=== PATIENT | male | born 1980 | race Caucasian/White ===

== ENCOUNTER 2024-05-10 21:02 | Observation (INO) | payer OTHER, SELFPAY ==
[2024-05-10 21:08] VITALS: BP 163/117; PULSE 78; TEMP 36.4; O2SAT 99; BMI 29.7
--- NOTE | 2024-05-10 21:18 | ED_ITS ---
HPI HPI - General Adult General Chief complaint: Abdominal Pain Stated complaint: rectal pain Time Seen by Provider: 05/10/24 21:14 Source: patient Mode of arrival: walk-in Limitations: no limitations History of Present Illness HPI narrative: presents complaining of lillie anal pain. Started about 5 days ago and has increased. Now hurts to sit on his buttocks. No fever or abdominal pain. Related Data Previous Rx's ?Medication ?Instructions ?Recorded levofloxacin 750 mg tablet 750 mg PO DAILY 7 days #10 tabs 05/11/24 metronidazole 500 mg tablet 500 mg PO Q8H 10 days #30 tabs 05/11/24 Allergies Allergy/AdvReac Type Severity Reaction Status Date / Time sulfamethoxazole Allergy Intermediate Rash Verified 05/10/24 21:08 [From Bactrim] trimethoprim [From Bactrim] Allergy Intermediate Rash Verified 05/10/24 21:08 Opioid HPI Opioid Management Most Recent Opioid Data: Last Pain Scale 8 05/11/24 11:00 Last Pain Assessment 05/11/24 11:00 Last MAR Pain Assessment 05/11/24 10:58 Last ORT Total Score 0 05/11/24 00:42 Last ORT Risk Category Low Risk 05/11/24 00:42 Review of Systems ROS Status of ROS 10 or more systems reviewed and unremark able except as noted in history and below PFSH PFS Social History Non-prescribed substance use: denies use Known occupational exposures/hazards: No Highest level of school completed/degree received: GED or equivalent Do you want help with school or training: No Are you now , , , , never or living with a partner: In a typical week, how many times do you talk on the telephone with family, friends, or neighbors: 3 or more times per week How often do you get together with friends or relatives: once per week How often do you attend worship or mormon services: never Do you belong to any clubs or organizations such as worship groups unions, fraternal or athletic groups, or school groups: no Total score: 2 Score interpretation: A score of greater than or equal to 2 indicates the lowest level of social isolation. Little interest or pleasure in doing things: not at all Feeling down, depressed, or hopeless: not at all Feel stressed/tense/nervous/anxious/difficulty sleeping: not at all Due to disability, difficulty making decisions: No Do you think of yourself as: straight/heterosexual Gender Identity: male Exam Constitutional Vital Signs, click to edit/add: Last Vital Signs Temp 97.6 F 05/11/24 09:12 Pulse 68 05/11/24 09:12 Resp 18 05/11/24 09:12 BP 129/81 05/11/24 09:12 Pulse Ox 94 L 05/11/24 09:12 O2 Del Method Room Air 05/11/24 09:12 Common normals: no apparent distress, average body habitus, oriented x3, no limitations, healthy appearing, alert and well nourished HENMT Common normals: normocephalic and head/scalp atraumatic Eye Common normals: PERRL and EOMs intact bilaterally Respiratory Common normals: normal respiratory effort, no retractions, no use of accessory muscles and clear to auscultation bilaterally Cardio Common normals: regular rate, regular rhythm, S1 normal heart sound and S2 normal heart sound GI Common normals: Normal to inspection, nondistended, normoactive bowel sounds present, soft to palpation and non-tender Other: right lillie anal ext hemorrhoid noted but is not enlarged . very tender. Tenderness out of proportion to inspection. Does not appear thrombosed Back & Pelvis Common normals: no CVA tenderness Extremity Common normals: normal to inspection and full ROM Neuro Common normals: oriented x3, CN's II-XII intact bilaterally, moves all extremities and no focal motor deficits Psych Appearance: grossly normal Course Vital Signs Vital signs: Vital Signs Temperature 97.5 F L 05/10/24 21:08 Pulse Rate 78 05/10/24 21:08 Respiratory Rate 18 05/10/24 21:08 Blood Pressure 163/117 H 05/10/24 21:08 Pulse Oximetry 99 05/10/24 21:08 Oxygen Delivery Method Room Air 05/10/24 21:08 Temperature 97.6 F 05/11/24 09:12 Pulse Rate 68 05/11/24 09:12 Respiratory Rate 18 05/11/24 09:12 Blood Pressure 129/81 05/11/24 09:12 Pulse Oximetry 94 L 05/11/24 09:12 Oxygen Delivery Method Room Air 05/11/24 09:12 Medical Decision Making [facility] Narrative Medical decision making narrative: patient presents complaining of rectal pain worsening over the past week. Found to have an intersphincteric abscess 2.2cm. Discussed with Dr Martinez who recommended hospitalization and he will consult in the AM. Hospitalist paged. Patient given dose of cipro and flagyl as well as fentanyl and solumedrol for the inflamation. Lab Data Labs: Lab Results 05/10/24 Range/Units 21:35 WBC 11.0 (4.0-11.0) 10^3/uL RBC 5.62 (4.70-6.10) 10^6/uL Hgb 14.7 (14.0-18.0) g/dL Hct 45.7 (42.0-54.0) % MCV 81.3 (80.0-94.0) fL MCH 26.2 (25.9-34.0) pg MCHC 32.2 (29.9-35.2) g/dL RDW 18.4 H (11.0-15.0) % Plt Count 272 (150-450) 10^3/uL MPV 9.6 (9.5-13.5) fL Neut % (Auto) 65.7 (43.0-75.0) % Lymph % (Auto) 21.2 (20.5-60.0) % [place] % (Auto) 11.6 (1.7-12.0) % Eos % (Auto) 0.6 L (0.9-7.0) % Baso % (Auto) 0.8 (0.2-2.0) % Neut # (Auto) 7.2 H (1.4-6.5) 10^3/uL Lymph # (Auto) 2.3 (1.2-3.8) 10^3/uL [place] # (Auto) 1.3 H (0.3-0.8) 10^3/uL Eos # (Auto) 0.1 (0.0-0.7) 10^3/uL Baso # (Auto) 0.1 (0.0-0.1) 10^3/uL Abs Immat Gran (auto) 0.01 (0.00-0.03) 10^3/uL Imm/Tot Granulo (auto) 0.1 (0.0-0.5) % Sodium 138 (136-145) mmol/L Potassium 4.2 (3.5-5.1) mmol/L Chloride 100 (98-107) mmol/L Carbon Dioxide 28.5 (21.0-32.0) mmol/L Anion Gap 13.7 BUN 17.0 (7.0-18.0) mg/dL Creatinine 1.23 (0.70-1.30) mg/dL Est GFR ( Amer) >60 (>=60) Est GFR (Non-Af Amer) >60 (>=60) BUN/Creatinine Ratio 13.8 Glucose 87 (74-106) mg/dL Lactate 0.8 (0.4-2.0) mmol/L Calcium 9.2 (8.5-10.1) mg/dL Total Bilirubin 0.5 (0.2-1.0) mg/dL AST 40 H (15-37) U/L ALT 58 (16-63) U/L Alkaline Phosphatase 54 (46-116) U/L Total Protein 7.1 (6.4-8.2) g/dL Albumin 3.5 (3.4-5.0) g/dL Globulin 3.6 g/dL Albumin/Globulin Ratio 1.0 Imaging Data Abdominal x-ray: Radiologist's impression: ITS Impressions Abdomen/Pelvis CT 05/10/24 21:22 IMPRESSION: 1. Right perianal intersphincteric abscess measuring up to 2.2 centimeters. 2. Nonobstructing right renal calculus measuring 3 millimeters. Electronically authenticated by: WANDER ARMENDARIZ Date: 05/10/2024 23:19 Discharge Plan Discharge Chief Complaint: Abdominal Pain Clinical Impression: Intersphincteric abscess Patient Disposition: Admitted as Observation Discharge Date/Time: 05/11/24 00:27
--- NOTE | 2024-05-10 21:22 | CT_ITS ---
[address] [address] Patient Name: TANA GILLIS MRN: [id number] date: 1980 Sex: M Assigned Patient Location: ER Current Patient Location: ER Accession/Order Number: [id number] Exam Date: 05/10/2024 22:18 Report Date: 05/10/2024 23:19 At the request of: STEVE NOGUERA Procedure: CT abdomen pelvis w con EXAM: CT abdomen pelvis w con HISTORY: anal pain COMPARISON: 04/19/2016 TECHNIQUE: CT of abdomen and pelvis with intravenous contrast. Dose reduction techniques were achieved by using automated exposure control and/or adjustment of mA and/or kV according to patient size and/or use of iterative reconstruction technique. FINDINGS: TUBES AND IMPLANTS: None. LOWER CHEST: Unremarkable ABDOMEN and PELVIS ABDOMINAL WALL AND SOFT TISSUES: There is induration involving the left perianal/perineal region adjacent to the gluteal cleft with small hypodense collection seen in the right intersphincteric region measuring 2.2 by 1.7 by 0.8 centimeters. BONES: Multilevel degenerative changes of the spine. No suspicious lesions. ARTERIES: No aortoiliac aneurysm VEINS: Unremarkable. LYMPH NODES: Unremarkable. PERITONEUM/ RETROPERITONEUM: Unremarkable. BOWEL: No obstruction. APPENDIX: Unremarkable LIVER: No suspicious lesions. GALLBLADDER: Unremarkable. BILE DUCTS: Not dilated SPLEEN: Unremarkable. PANCREAS: Unremarkable. ADRENALS: Unremarkable. KIDNEYS/ URETERS: Nonobstructing right renal calculus measuring 3 millimeters. No left stones or hydronephrosis. REPRODUCTIVE ORGANS: Unremarkable URINARY BLADDER: Unremarkable. CT/CT abdomen pelvis w con IMPRESSION: 1. Right perianal intersphincteric abscess measuring up to 2.2 centimeters. 2. Nonobstructing right renal calculus measuring 3 millimeters. Electronically authenticated by: WANDER ARMENDARIZ Date: 05/10/2024 23:19
[2024-05-10 21:40] LABS: Basophils Absolute Auto 0.1 10^3/uL (0.0-0.1); Basophils Percent Auto 0.8 % (0.2-2.0); Eosinophils Absolute Auto 0.1 10^3/uL (0.0-0.7); Eosinophils Percent Auto 0.6 % (0.9-7.0); Hematocrit 45.7 % (42.0-54.0); Hemoglobin 14.7 g/dL (14.0-18.0); Immature Granulocytes Abs Auto 0.01 10^3/uL (0.00-0.03); Immature Granulocytes Pct Auto 0.1 % (0.0-0.5); Lymphocytes Absolute Auto 2.3 10^3/uL (1.2-3.8); Lymphocytes Percent Auto 21.2 % (20.5-60.0); Mean Corpuscular HGB Conc 32.2 g/dL (29.9-35.2); Mean Corpuscular Hemoglobin 26.2 pg (25.9-34.0); Mean Corpuscular Volume 81.3 fL (80.0-94.0); Mean Platelet Volume 9.6 fL (9.5-13.5); Monocytes Absolute Auto 1.3 10^3/uL (0.3-0.8); Monocytes Percent Auto 11.6 % (1.7-12.0); Neutrophils Absolute Auto 7.2 10^3/uL (1.4-6.5); Neutrophils Percent Auto 65.7 % (43.0-75.0); Platelet Count 272 10^3/uL (150-450); Red Blood Count 5.62 10^6/uL (4.70-6.10); Red Cell Distribution Width 18.4 % (11.0-15.0)
[2024-05-10] MEDS: KETOROLAC TROMETHAMINE 30 MG/ML VIAL IVP (21:42)
[2024-05-10] MEDS: METHYLPREDNISOLONE SOD SUCC PF 125 MG/2 ML VIAL IVP (21:42)
[2024-05-10 21:56] LABS: Alanine Aminotransferase 58 U/L (16-63); Albumin Level 3.5 g/dL (3.4-5.0); Alkaline Phosphatase 54 U/L (46-116); Anion Gap 13.7; Aspartate Amino Transferase 40 U/L (15-37); BUN Creatinine Ratio 13.8; Bilirubin Total 0.5 mg/dL (0.2-1.0); Calcium 9.2 mg/dL (8.5-10.1); Carbon Dioxide 28.5 mmol/L (21.0-32.0); Chloride 100 mmol/L (98-107); Estimated GFR (African America >60 (>=60); Estimated GFR (Non-African Ame >60 (>=60); Globulin 3.6 g/dL; Glucose 87 mg/dL (74-106); Potassium 4.2 mmol/L (3.5-5.1); Sodium 138 mmol/L (136-145); Total Protein 7.1 g/dL (6.4-8.2)
[2024-05-10 21:59] LABS: Lactate/Lactic Acid 0.8 mmol/L (0.4-2.0)
[2024-05-10] MEDS: FENTANYL CITRATE/PF 100 MCG/2 ML VIAL IV (23:51)
[2024-05-10] MEDS: CIPROFLOXACIN IN 5 % DEXTROSE 400 MG/200 ML PREMIX 200 MG IV (23:51)
[2024-05-10 23:58] VITALS: BP 145/83; PULSE 78; O2SAT 96
[2024-05-11] VITALS (12 sets, daily range): BP systolic 96–174; BP diastolic 42–98; PULSE 66–77; TEMP 36.4–36.8; O2SAT 92–98; BMI 29.0
[2024-05-11] MEDS: DEXTROSE 5%-0.9% NACL 1,000 ML IV.SOLN 125 ML IV (01:55)
[2024-05-11] MEDS: METRONIDAZOLE/SODIUM CHLORIDE 500 MG/100 ML PREMIX 100 MG IV ×2 (02:00→09:05)
[2024-05-11] MEDS: FENTANYL CITRATE/PF 100 MCG/2 ML VIAL 50 MCG IV ×3 (02:03→09:05)
[2024-05-11] MEDS: TRAZODONE HCL 50 MG TABLET PO (02:04)
--- NOTE | 2024-05-11 06:36 | P.GSCN_ITS ---
History of Present Illness Consult details Consult date: 05/11/24 Reason for consult: other (Perianal abscess right buttocks) Requesting physician: Luis Felipe Manuel Narrative: 43-year-old male presented to the ED with complaints of pain on sitting and defecation which has been going on for about 5 days. He was at the [facility] unable to walk more because of pain. He had a CT of the abdomen and pelvis which demonstrates a 2.2 cm perianal abscess on the right side. He denies any fevers or chills or history of diabetes. I have performed previous hernia repairs on him years ago. White blood count slightly elevated 11,000. Denies any other medical problems. Review of Systems ROS Status of ROS 10 or more systems reviewed and unremark able except as noted in history and below [facility] Social History Non-prescribed substance use: denies use Known occupational exposures/hazards: No Highest level of school completed/degree received: GED or equivalent Do you want help with school or training: No Are you now , , , , never or living with a partner: In a typical week, how many times do you talk on the telephone with family, frie nds, or neighbors: 3 or more times per week How often do you get together with friends or relatives: once per week How often do you attend rastafari or presybeterian services: never Do you belong to any clubs or organizations such as rastafari groups unions, fraternal or athletic groups, or school groups: no Total score: 2 Score interpretation: A score of greater than or equal to 2 indicates the lowest level of social isolation. Little interest or pleasure in doing things: not at all Feeling down, depressed, or hopeless: not at all Feel stressed/tense/nervous/anxious/difficulty sleeping: not at all Due to disability, difficulty making decisions: No Do you think of yourself as: straight/heterosexual Gender Identity: male Meds Home Medications and Allergies Home Medications ?Medication ?Instructions ?Recorded ?Confirmed ?Type No Known Home Medications 05/10/24 05/10/24 History Allergies Allergy/AdvReac Type Severity Reaction Status Date / Time sulfamethoxazole Allergy Intermediate Rash Verified 05/10/24 21:08 [From Bactrim] trimethoprim [From Bactrim] Allergy Intermediate Rash Verified 05/10/24 21:08 Exam Constitutional Vital Signs, click to edit/add: Last Vital Signs Temp 97.5 F L 05/11/24 04:00 Pulse 72 05/11/24 04:00 Resp 18 05/11/24 04:00 BP 127/78 05/11/24 04:00 Pulse Ox 93 L 05/11/24 04:45 O2 Del Method Room Air 05/11/24 04:45 Documenting provider has reviewed patient's vital signs: yes Common normals: no apparent distress, average body habitus, oriented x3, healthy appearing, alert and well nourished General appearance: cooperative Respiratory Common normals: clear to auscultation bilaterally Cardio Common normals: regular rate and regular rhythm GI Common normals: Normal to inspection, nondistended, normoactive bowel sounds present, soft to palpation and non-tender Rectal Exam - Male: visual inspection normal, normal sphincter tone, prostate normal and tenderness (Right perianal area) Neuro Sensorium/orientation: awake, alert, oriented to person, oriented to place and oriented to time Results Labs Labs: Abnormal lab results 05/10/24 Range/Units 21:35 RDW 18.4 H (11.0-15.0) % Eos % (Auto) 0.6 L (0.9-7.0) % Neut # (Auto) 7.2 H (1.4-6.5) 10^3/uL [place] # (Auto) 1.3 H (0.3-0.8) 10^3/uL AST 40 H (15-37) U/L Diabetes panel 05/10/24 Range/Units 21:35 Sodium 138 (136-145) mmol/L Potassium 4.2 (3.5-5.1) mmol/L Chloride 100 (98-107) mmol/L Carbon Dioxide 28.5 (21.0-32.0) mmol/L BUN 17.0 (7.0-18.0) mg/dL Creatinine 1.23 (0.70-1.30) mg/dL Glucose 87 (74-106) mg/dL Calcium 9.2 (8.5-10.1) mg/dL AST 40 H (15-37) U/L ALT 58 (16-63) U/L Alkaline Phosphatase 54 (46-116) U/L Total Protein 7.1 (6.4-8.2) g/dL Albumin 3.5 (3.4-5.0) g/dL Calcium panel 05/10/24 Range/Units 21:35 Calcium 9.2 (8.5-10.1) mg/dL Albumin 3.5 (3.4-5.0) g/dL Pituitary panel 05/10/24 Range/Units 21:35 Sodium 138 (136-145) mmol/L Potassium 4.2 (3.5-5.1) mmol/L Chloride 100 (98-107) mmol/L Carbon Dioxide 28.5 (21.0-32.0) mmol/L BUN 17.0 (7.0-18.0) mg/dL Creatinine 1.23 (0.70-1.30) mg/dL Glucose 87 (74-106) mg/dL Calcium 9.2 (8.5-10.1) mg/dL Adrenal panel 05/10/24 Range/Units 21:35 Sodium 138 (136-145) mmol/L Potassium 4.2 (3.5-5.1) mmol/L Chloride 100 (98-107) mmol/L Carbon Dioxide 28.5 (21.0-32.0) mmol/L BUN 17.0 (7.0-18.0) mg/dL Creatinine 1.23 (0.70-1.30) mg/dL Glucose 87 (74-106) mg/dL Calcium 9.2 (8.5-10.1) mg/dL Total Bilirubin 0.5 (0.2-1.0) mg/dL AST 40 H (15-37) U/L ALT 58 (16-63) U/L Alkaline Phosphatase 54 (46-116) U/L Total Protein 7.1 (6.4-8.2) g/dL Albumin 3.5 (3.4-5.0) g/dL All other labs normal. Imaging Abdomen CT scan report/results: report reviewed and image reviewed Assessment and Plan Assessment and Plan (1) Intersphincteric abscess: Plan Incision and drainage of right perianal abscess under anesthesia. Risks benefits and alternatives to the procedure may include infection, bleeding, pain and/or recurrence. He understood and wished to proceed. The area will be packed and he is asked to perform warm sitz bath with Epsom salts 3-4 times daily for the next week and use a stool softener 3 times daily and follow-up in the office in 2 weeks and would probably need a colonoscopy as an outpatient at a later date. Most likely can be discharged later today on p.o. antibiotics Such as Cipro.
--- NOTE | 2024-05-11 06:41 | P.GSPRC_ITS ---
Date of procedure: 05/11/24 Indications for Procedure: Right perianal abscess/intersphincteric abscess Pre-op diagnosis: Right perianal abscess/inter sphincteric abscess Post-op diagnosis: same as pre-op Procedure: Incision and drainage of right perianal/inter sphincteric abscess Anesthesia: JANET Surgeon: Lalo Martinez Procedure Summary: Patient was taken to the operating suite placed in the supine position and given a general anesthetic by the computer systems auditor. A timeout was taken and patient had been receiving antibiotics from the ED. Patient was then placed in lithotomy position and the perianal area was prepped and draped in usual sterile fashion. Gloved finger was used to palpate the right perianal abscess and then this was incised and drained with a #11 blade and cultures were taken for microbiology. The area was explored with a hemostat with a gloved finger in the rectum and the abscess was between the sphincters. It was completely resolved. The area was irrigated and packed with iodoform gauze and a sterile dressing was placed. 1% Xylocaine with epinephrine 10 cc used to anesthetize the area locally. Patient may be discharged today. He should follow-up with me in 2 weeks in the office and soak in a warm tub bath 3-4 times daily and leave packing in place for 2 days and then removed. Estimated blood loss (mL): 2 Specimens: Pus for microbiology Complications: No Pathology: none sent Condition: stable Disposition: PACU
[2024-05-11] MEDS: LACTATED RINGER'S SOLUTION 1,000 ML 50 ML IV (07:30)
[2024-05-11] MEDS: LIDOCAINE HCL 1%-EPINEPHRINE 1:100,000 20 ML MDV INJ (07:59)
[2024-05-11] MEDS: HYDROMORPHONE HCL 0.5 MG/0.5 ML SYRINGE IV (08:25)
[2024-05-11] MEDS: ACETAMINOPHEN 325 MG TABLET 650 MG PO (09:58)
[2024-05-11] MEDS: OXYCODONE HCL 5 MG TABLET PO (09:58)
[2024-05-11 10:18] LABS: Hematocrit 49.8 % (42.0-54.0); Hemoglobin 15.7 g/dL (14.0-18.0); Mean Corpuscular HGB Conc 31.5 g/dL (29.9-35.2); Mean Corpuscular Hemoglobin 25.4 pg (25.9-34.0); Mean Corpuscular Volume 80.7 fL (80.0-94.0); Mean Platelet Volume 9.5 fL (9.5-13.5); Platelet Count 284 10^3/uL (150-450); Red Blood Count 6.17 10^6/uL (4.70-6.10); Red Cell Distribution Width 18.7 % (11.0-15.0)
[2024-05-11 10:31] LABS: INR 1.02; Prothrombin Time 10.8 sec (9.0-11.6)
[2024-05-11 10:36] LABS: Alanine Aminotransferase 53 U/L (16-63); Albumin Globulin Ratio 0.9; Albumin Level 3.6 g/dL (3.4-5.0); Alkaline Phosphatase 61 U/L (46-116); Anion Gap 13.1; Aspartate Amino Transferase 31 U/L (15-37); BUN Creatinine Ratio 14.3; Bilirubin Total 1.1 mg/dL (0.2-1.0); Calcium 9.1 mg/dL (8.5-10.1); Carbon Dioxide 28.9 mmol/L (21.0-32.0); Chloride 99 mmol/L (98-107); Estimated GFR (African America >60 (>=60); Estimated GFR (Non-African Ame >60 (>=60); Glucose 187 mg/dL (74-106); Sodium 136 mmol/L (136-145); Total Protein 7.6 g/dL (6.4-8.2)
--- NOTE | 2024-05-11 10:49 | PM.HP ---
HPI H&P: HPI History of Present Illness Chief complaint: intersphincteric abscess Narrative: HPI and Hospital Course: 43 y o with no sig medical hx presented to ED last night with severe rectal pain/pressure and mass. He fist noticed swelling/mass about 1 week ago and thought he had hemorrhoids. His symptoms progressively worsened to the point where he could not bear the pain and came to ED for evaluation where his work up indicated 2.2 cm perianal intersphincteric abscess for which he was admitted for pain control, IV abx and surgical consult. Patient was seen post op after he had I&D and was in considerable pain. Other than that, he had no active complaints to offer. He was cleared to leave on abx by surgery after I&D. Nursing will provide education on post op care and patient will be discharged home on oral abx and short course of oral opioids for 3 days. Patient instructed to follow up with PCP and General Surgery. Opioid HPI Opioid Management Most Recent Pain and Opioid Data: Last Pain Scale 10 05/11/24 10:00 Last Pain Assessment 05/11/24 10:00 Last MAR Pain Assessment 05/11/24 09:59 Last ORT Total Score 0 05/11/24 00:42 Last ORT Risk Category Low Risk 05/11/24 00:42 PFSH PFSH Social History Non-prescribed substance use: denies use Known occupational exposures/hazards: No Highest level of school completed/degree received: GED or equivalent Do you want help with school or training: No Are you now , , , , never or living with a partner: In a typical week, how many times do you talk on the telephone with family, friends, or neighbors: 3 or more times per week How often do you get together with friends or relatives: once per week How often do you attend confucianism or mosque services: never Do you belong to any clubs or organizations such as confucianism groups unions, fraternal or athletic groups, or school groups: no Total score: 2 Score interpretation: A score of greater than or equal to 2 indicates the lowest level of social isolation. Little interest or pleasure in doing things: not at all Feeling down, depressed, or hopeless: not at all Feel stressed/tense/nervous/anxious/difficulty sleeping: not at all Due to disability, difficulty making decisions: No Do you think of yourself as: straight/heterosexual Gender Identity: male Meds Home Medications and Allergies Home Medications ?Medication ?Instructions ?Recorded ?Confirmed ?Type levofloxacin 750 mg tablet 750 mg PO DAILY 7 days #10 tabs 05/11/24 Rx metronidazole 500 mg tablet 500 mg PO Q8H 10 days #30 tabs 05/11/24 Rx Allergies Allergy/AdvReac Type Severity Reaction Status Date / Time sulfamethoxazole Allergy Intermediate Rash Verified 05/10/24 21:08 [From Bactrim] trimethoprim [From Bactrim] Allergy Intermediate Rash Verified 05/10/24 21:08 Exam Constitutional Vital Signs, click to edit/add: Last Vital Signs Temp 97.6 F 05/11/24 09:12 Pulse 68 05/11/24 09:12 Resp 18 05/11/24 09:12 BP 129/81 05/11/24 09:12 Pulse Ox 94 L 05/11/24 09:12 O2 Del Method Room Air 05/11/24 09:12 Documenting provider has reviewed patient's vital signs: yes Common normals: oriented x3 General appearance: cooperative Respiratory Common normals: normal respiratory effort and clear to auscultation bilaterally Effort & inspection: able to speak in complete sentences Auscultation: clear to auscultation bilaterally Cardio Common normals: regular rate, S1 normal heart sound and S2 normal heart sound Rate: regular rate Heart sounds: S1 normal and S2 normal GI Common normals: Normal to inspection, nondistended, normoactive bowel sounds present, soft to palpation, non-tender and no hepatosplenomegaly Palpation: soft and no hepatosplenomegaly Other: No need for rectal exam as he just had I&D and had post op dressing in place. Extremity Common normals: no clubbing, cyanosis or edema Neuro Common normals: oriented x3, moves all extremities and no focal motor deficits Psych Common normals: mental status grossly normal, denies hallucinations, denies homicidal ideation and denies suicidal ideation Results Labs Labs: Short CBC 05/10/24 05/11/24 Range/Units 21:35 10:10 WBC 11.0 7.0 (4.0-11.0) 10^3/uL Hgb 14.7 15.7 (14.0-18.0) g/dL Hct 45.7 49.8 (42.0-54.0) % Plt Count 272 284 (150-450) 10^3/uL BMP 05/10/24 05/11/24 21:35 10:10 Sodium 138 136 Potassium 4.2 5.0 Chloride 100 99 Carbon Dioxide 28.5 28.9 BUN 17.0 17.0 Creatinine 1.23 1.19 Glucose 87 187 H Calcium 9.2 9.1 Liver Function 05/10/24 05/11/24 Range/Units 21:35 10:10 Total Bilirubin 0.5 1.1 H (0.2-1.0) mg/dL AST 40 H 31 (15-37) U/L ALT 58 53 (16-63) U/L Alkaline Phosphatase 54 61 (46-116) U/L Albumin 3.5 3.6 (3.4-5.0) g/dL Assessment and Plan Assessment and Plan (1) Intersphincteric abscess: Plan s/p I&D in OR. Cultures sent from OR. Patient stable for d/c on oral levaquin/flagyl. F/u with PCP/general surgery.
[2024-05-11 11:16] LABS: Lymphocytes Absolute Manual 0.28 10^3/uL (1.20-3.80); Segmented Neut Absolute Manual 6.72 10^3/uL (1.4-6.5)
--- NOTE | 2024-05-12 13:45 | CM.DCFOLLOWU ---
1st attempt 05/12/24
--- NOTE | 2024-05-13 13:36 | CM.DCFOLLOWU ---
Person spoke with: patient How are you feeling? alright How is your pain? so/so, worse than what he thought it was going to be. Did you understand your discharge instructions? yes Do you have any questions about your discharge instructions? no Were you given any prescriptions at discharge? yes Were you able to get your prescriptions filled? yes Do you understand how to take your medications as ordered? yes Do you have any questions about your follow up appointment and do you plan to keep your follow up appointment? no questions, will call and schedule Is there anything else that you would like to discuss? no Questions/Comments/Concerns/Other: none
== END 2024-05-11 11:26 | disposition home or self-care (01) ==
LOC: ER 05-11 00:04 → MS 05-11 00:30
PROVIDERS: Registered Nurse; Surgery; Admitting Provider Internal Medicine; Emergency Provider Internal Medicine; PCP Physician Assistant; Visit Provider Internal Medicine
PROC: (CPT 902; principal; 2024-05-11 07:30)
DX: K61.4 Intrasphincteric abscess (principal); B96.89 Other specified bacterial agents as the cause of diseases classified elsewhere
CPT/HCPCS: 46050; 36415; 74177; 80053; 83605; 85007; 85025; 85027; 85610; 87070; 87075; 87150; 87186; 94761; 96365; 96366; 96375; 96376; 99285; 99999; G0378; J0744; J1100; J1170; J1836; J1885; J2250; J2405; J2704; J2919; J3010; Q9967